=== PATIENT | female | born 1995 | race Hispanic/Latino ===

== ENCOUNTER 2022-03-25 21:39 | Emergency (ER) | payer BC ==
[~2022-03-25] VITALS: Ht 160 cm; Wt 77.6 kg
[~2022-03-25 21:39] MED LIST: DOXY100C5 PO; FLUN25H NS
[2022-03-25 22:18] LABS: BASOPHILS % (AUTO) 0.7 % (0.0-5.0); EOSINOPHILS % (AUTO) 3.4 % (0.0-8.0); HEMATOCRIT 37.2 % (36-48); LYMPHOCYTES % (AUTO) 28.2 % (21.0-51.0); MEAN CORPUSCULAR HEMOGLOBIN 26.6 pg (27.0-33.0); MEAN CORPUSCULAR HGB CONC 34.1 g/dL (32.0-36.0); MEAN CORPUSCULAR VOLUME 77.8 fL (79-99); MONOCYTES % (AUTO) 10.6 % (3.0-13.0); PLATELET COUNT (AUTO) 261 K/uL (130-400); RED BLOOD CELL COUNT(AUTO) 4.78 MIL/uL (4.00-5.50); RED CELL DISTRIBUTION WIDTH 14.9 % (11.0-15.5); WHITE BLOOD COUNT (AUTO) 7.6 K/uL (4.8-10.8)
[2022-03-25 22:22] LABS: APPEARANCE,URINE CLOUDY (CLEAR); BILIRUBIN,URINE NEGATIVE (NEGATIVE); COLOR,URINE YELLOW (YELLOW); GLUCOSE, URINE (UA) NEGATIVE (NEGATIVE); KETONES,URINE 5 mg/dL (NEGATIVE); LEUKOCYTE ESTERASE ,URINE NEGATIVE Leu/uL (NEGATIVE); NITRATE,URINE NEGATIVE (NEGATIVE); OCCULT BLOOD,URINE MODERATE (NEGATIVE); PH,URINE 6.5 (5.0-8.0); PROTEIN,URINE 30 mg/dL (NEGATIVE)
[2022-03-25 22:28] LABS: BACTERIA,URINE RARE /HPF (None Seen); MUCUS,URINE FEW LPF (None Seen); RBC,URINE 51-100 /HPF (0-1); SQUAMOUS EPITHELIAL CELL,UR FEW /HPF (0-2)
[2022-03-25] MEDS ORDERED: MAGNESIUM HYDROXIDE 30 ML/UDCUP PO SCH (22:30)
[2022-03-25] MEDS ORDERED: KETOROLAC 30MG VIAL (30MG/ML) IVP ONE (22:30)
[2022-03-25] MEDS ORDERED: 0.9%NACL 1000ML 1,000 ML IV ONE (22:30)
[2022-03-25 22:31] LABS: ALBUMIN 3.7 g/dL (3.5-5.0); HCG,QUALITATIVE URINE NEGATIVE (NEGATIVE); TOTAL PROTEIN, SERUM 7.4 g/dL (6.0-8.3)
[2022-03-25 22:32] LABS: POTASSIUM 2.7 mmol/L (3.5-5.1)
[2022-03-25] MEDS ORDERED: POTASSIUM CHLORIDE 10MEQ/100ML 0 ML IV ONE (22:40)
[2022-03-25] MEDS: POTASSIUM CHLORIDE 20MEQ/100ML 100 ML IV ONE ×2 (23:12→23:39)
[2022-03-25] MEDS ORDERED: POTASSIUM CHLORIDE 10MEQ/100ML 100 ML IV SCH (23:30)
[2022-03-26] MEDS ORDERED: POTASSIUM BICARB/CIT AC 25 MEQ TABLET.EFF PO ONE
[2022-03-26] MEDS ORDERED: TAMS-1 PO (00:32)
[2022-03-26] MEDS ORDERED: IBUP-1493 PO (00:32)
[2022-03-26 00:38] VITALS: BP 112/67
== END 2022-03-26 00:54 | disposition home or self-care (01) ==
LOC: EDH 21:39
DX: N83.291 Other ovarian cyst, right side (principal); N20.0 Calculus of kidney; Z79.1 Long term (current) use of non-steroidal anti-inflammatories (NSAID); Z90.49 Acquired absence of other specified parts of digestive tract
CPT/HCPCS: 99285; 74176; 96374; 76856; 96361; 80053; 85025; 81001; 81025; 36415; J7030; J3480; J1885

== ENCOUNTER 2022-09-16 06:55 | Day surgery (SDC) | payer BC ==
[2022-09-11 13:17] LABS: BASOPHILS # (AUTO) 0.03 K/uL (0.00-0.20); BASOPHILS % (AUTO) 0.3 % (0.0-5.0); EOSINOPHILS # (AUTO) 0.13 K/uL (0.00-0.70); EOSINOPHILS % (AUTO) 1.3 % (0.0-8.0); HEMATOCRIT 41.5 % (36-48); IMMATURE GRANULOCYTE ABSOLUTE 0.03 K/uL (0-1); LYMPHOCYTES # (AUTO) 2.1 K/uL (1.0-4.8); MEAN CORPUSCULAR HEMOGLOBIN 27.3 pg (27.0-33.0); MEAN CORPUSCULAR HGB CONC 31.1 g/dL (32.0-36.0); MEAN CORPUSCULAR VOLUME 87.7 fL (79-99); MONOCYTES # (AUTO) 0.5 K/uL (0.1-1.0); MONOCYTES % (AUTO) 5.5 % (3.0-13.0); NEUTROPHILS # (AUTO) 6.8 K/uL (1.8-7.7); NEUTROPHILS % (AUTO) 70.6 % (40.0-77.0); PLATELET COUNT (AUTO) 396 K/uL (130-400); RED BLOOD CELL COUNT(AUTO) 4.73 MIL/uL (4.00-5.50); RED CELL DISTRIBUTION WIDTH 13.8 % (11.0-15.5); WHITE BLOOD COUNT (AUTO) 9.7 K/uL (4.8-10.8)
[2022-09-11 13:49] VITALS: BP 124/75; PULSE 61; RESP 18
[2022-09-16] VITALS (20 sets, daily range): BP systolic 108–131; BP diastolic 52–87; PULSE 74–96; RESP 13–23
[~2022-09-16] VITALS: Ht 160 cm; Wt 81.0 kg
[2022-09-16] MEDS ORDERED: CEFAZOLIN SODIUM 2 GM VIAL ONE (07:18)
[2022-09-16] MEDS ORDERED: LIDOCAINE PF 100MG/5ML (2%) SYRINGE 5ML ONE (07:20)
[2022-09-16] MEDS ORDERED: SUCCINYLCHOLINE 200MG/10ML SYR ONE (07:20)
[2022-09-16] MEDS ORDERED: DEXAMETHASONE SOD PHOSPHATE 10MG/ML 1ML VIAL ONE (07:20)
[2022-09-16] MEDS ORDERED: ONDANSETRON 4MG INJ ONE ×3 (07:20→10:57)
[2022-09-16] MEDS ORDERED: PROPOFOL 10 MG/ML 20ML VIAL IV ONE (07:20)
[2022-09-16] MEDS ORDERED: LACTATED RINGERS 1000ML 1,000 ML IV ONE (07:20)
[2022-09-16] MEDS ORDERED: GLYCOPYRROLATE 1 MG/5 ML SYRINGE ONE (07:20)
[2022-09-16] MEDS ORDERED: MIDAZOLAM HCL 1 MG/ML 2ML VIAL ONE (07:20)
[2022-09-16] MEDS ORDERED: NEOSTIGMINE 5MG/5ML SYR IV ONE (07:20)
[2022-09-16] MEDS ORDERED: ROCURONIUM 10MG/1ML SYR 10 MG/ML ML ONE (07:21)
[2022-09-16] MEDS ORDERED: FENTANYL CITRATE PF 50 MCG/1 ML 2ML VIAL ONE ×2 (07:21→08:08)
[2022-09-16] MEDS ORDERED: ESMOLOL HCL 10 MG/ML 10 ML VIAL ONE (08:13)
[2022-09-16] MEDS ORDERED: CEFAZOLIN SODIUM 2 GM VIAL IVPB ONE (08:40)
[2022-09-16] MEDS ORDERED: BUPIVACAINE/PF 0.25% 30ML VIAL IJ ONE ×4 (08:42→10:20)
[2022-09-16] MEDS ORDERED: FENTANYL CITRATE PF 50 MCG/1 ML 5ML AMP IV ONE (09:56)
[2022-09-16] MEDS ORDERED: MEPERIDINE-PF 25 MG/ML SYG ONE ×2 (10:57→11:11)
[2022-09-16] MEDS ORDERED: MORPHINE 10MG VIAL ONE (12:05)
[2022-09-16] MEDS ORDERED: SCOPOLAMINE HYDROBROMIDE 1 EACH ADH..PATCH TD ONE (13:12)
== END 2022-09-16 13:25 | disposition home or self-care (01) ==
LOC: DAH 06:55
PROVIDERS: ATTEND Obstetrics & Gynecology
DX: R10.2 Pelvic and perineal pain (principal); Z20.822 Contact with and (suspected) exposure to COVID-19; D27.0 Benign neoplasm of right ovary; N93.8 Other specified abnormal uterine and vaginal bleeding; N84.0 Polyp of corpus uteri; D25.9 Leiomyoma of uterus, unspecified; E66.9 Obesity, unspecified; Z90.49 Acquired absence of other specified parts of digestive tract; Z98.890 Other specified postprocedural states; Z68.32 Body mass index [BMI] 32.0-32.9, adult
CPT/HCPCS: 58558; 58662; S2900; 36415; 81025; 84703; 85025; 86850; 86900; 86901; 87426; A4344; J0330; J1100; J2001; J2175; J2250; J2270; J2405; J2704; J2710; J3010; J3490; J7030; J7120; A4215; A4221; A4222; A4223; A4510; A4600; A4649; A4663; C1765; G0168; J0690

== ENCOUNTER 2025-02-12 13:04 | Emergency (ER) | payer BC ==
[~2025-02-12] VITALS: Ht 157.5 cm; Wt 80.3 kg
--- NOTE | 2025-02-12 13:16 | ERN ---
ED Note History of Present Illness Stated Complaint: ABD PAIN Chief Complaint: Abdominal Pain Time Seen by MD: 13:08 Dictation: PATIENT IS A 29-YEAR-OLD FEMALE HERE WITH COMPLAINTS OF DIFFUSE LOWER ABDOMINAL PAIN WITH NAUSEA VOMITING AND DIARRHEA ONSET 11:00 THIS MORNING SHE DENIES FEVER CHILLS NO FLANK PAIN NO CHANGE IN URINATION. Allergies: Coded Allergies: No Known Drug Allergies (Unverified Allergy, Unknown, 11/02/16) Home Meds Active Scripts Ondansetron (Ondansetron Odt) 4 Mg Tab.rapdis, 4 MG PO Q6HPRN PRN for nausea, #16 TAB 0 Refills Prov:ADELE SUNG MELTER [employer]PER[employer] 02/12/25 Dicyclomine HCl (Bentyl) 20 Mg Tab, 20 MG PO Q6HPRN PRN for ABDOMINAL CRAMPING/PAIN, #20 TAB Prov:ADELE SUNG [employer]TER [employer]PER[employer] 02/12/25 Metronidazole (Metronidazole) 500 Mg Tablet, 1 TAB PO BID for 7 Days, #14 TAB 0 Refills Prov:ADELE SUNG [employer]TER [employer]PER[employer] 02/12/25 Ciprofloxacin HCl (Cipro) 500 Mg Tablet, 1 TAB PO BID for 7 Days, #14 TAB 0 Refills Prov:ADELE SUNG [employer]TER [employer]PER[employer] 02/12/25 Past Medical History Past Medical History: No Pertinent History Surgical History: Cholecystectomy Surgical History Other: DERMOID CYSTECTOMY RT OVARY, MASS ON RIGHT BREAST REMOVED Family History: Negative Social History: Negative LMP: Feb 10, 2025 RN Note Reviewed/Agreed w/PFSH: Yes Review of System Dictation CONSTITUTIONAL: NEGATIVE EXCEPT FOR HPI HEAD/FACE: NEGATIVE EXCEPT FOR HPI EENT: NEGATIVE EXCEPT FOR HPI RESPIRATORY: NEGATIVE EXCEPT FOR HPI GASTROINTESTINAL/ABDOMINAL: NEGATIVE EXCEPT FOR HPI DIFFUSE LOWER ABDOMINAL PAIN WITH NAUSEA VOMITING DIARRHEA GENITOURINARY: NEGATIVE EXCEPT FOR HPI MUSCULOSKELETAL: NEGATIVE EXCEPT FOR HPI INTEGUMENTARY: NEGATIVE EXCEPT FOR HPI NEUROLOGICAL/PSYCH: NEGATIVE EXCEPT FOR HPI HEMATOLOGIC/LYMPHATIC: NEGATIVE EXCEPT FOR HPI ALL SYSTEMS NEGATIVE, EXCEPT NOTED ABOVE. 13 POINT REVIEW OF SYSTEMS ASSESSED AND ALL NEGATIVE EXCEPT FOR ABOVE. Initial Vital Sign VS Vital Signs Date Time Temp Pulse Resp B/P (MAP) Pulse Ox O2 Delivery O2 Flow Rate FiO2 02/12/25 13:05 98.1 92 17 115/72 96 Room Air 0 02/12/25 13:13 21 Physical Exam Dictation VITAL SIGNS REVIEWED GENERAL APPEARANCE: ALERT, ORIENTED X 3, MILD ACUTE DISTRESS, WELL DEVELOPED, NOURISHED. OBESE HEAD AND FACE: NON-TRAUMATIC. EYES: PERRL, PINK CONJUNCTIVAS, EYELID NO TRAUMA, ANTERIOR CHAMBER WITH ARCUS SENILIS. EARS: PINNAS INTACT AND NO SIGNS OF TRAUMA OR ERYTHEMA EAR CANALS CLEAR AND NO DISCHARGE TM NO ERYTHEMA NOSE: NO DISCHARGE, NO BLEEDING. OROPHARYNX: MOUTH NORMAL, TONGUE PINK, PHARYNX CLEAR,NO ERYTHEMA, TONSILS NO EXUDATES, NO ABSCESSES NOTED, MUCOUS MEMBRANE MOIST NECK: SUPPLE, NON-TENDER, NO THYROMEGALY, NO MASSES, NO JVD, NO BRUITS BREAST:DEFERRED CHEST:NO TENDERNESS, NO CREPITUS, NO PARADOXICAL MOVEMENT, NO RETRACTIONS LUNGS:CLEAR, WELL-VENTILATED, SYMMETRIC, NO RALES, NO WHEEZING, NO RHONCHI, NO STRIDOR, GOOD BREATH SOUNDS BILATERALLY HEART: REGULAR RATE, REGULAR RHYTHM, NO MURMUR, NO GALLOPS VASCULAR: NO PERIPHERAL EDEMA, ABDOMEN: SOFT, POSITIVE BOWEL SOUNDS, NONDISTENDED, NO GUARDING, DIFFUSE BILATERAL LOWER QUADRANT PAIN TENDERNESS WITH PALPATION REBOUND RECTAL: DEFERRED GENITAL: DEFERRED NEUROLOGICAL: NORMAL SPEECH, MOTOR FUNCTION INTACT, SENSORY FUNCTION INTACT MUSCULOSKELETAL: NECK NONTENDER, FULL RANGE OF MOTION, BACK NONTENDER, FULL RANGE OF MOTION, EXTREMITIES: NONTENDER, FULL RANGE OF MOTION SKIN: COLOR PINK, DRY, NO TURGOR, NO RASH, NO LACERATIONS, NO ABRASIONS, NO CONTUSIONS. LYMPHATIC: DEFERRED Results (Laboratory/Radiology) Laboratory/Radiology Laboratory Tests Test 02/12/25 13:19 02/12/25 13:30 02/12/25 14:30 White Blood Count 17.5 K/uL (4.8-10.8) H Red Blood Count 4.90 MIL/uL (4.00-5.50) Hemoglobin 13.6 g/dL (12.0-16.0) Hematocrit 42.6 % (36-48) Mean Corpuscular Volume 86.9 fL (79-99) Mean Corpuscular Hemoglobin 27.8 pg (27.0-33.0) Mean Corpuscular Hemoglobin Concent 31.9 g/dL (32.0-36.0) L Red Cell Distribution Width 13.3 % (11.0-15.5) Platelet Count 378 K/uL (130-400) Mean Platelet Volume 10.1 fL (7.5-10.5) Immature Granulocyte % (Auto) 0.5 % (0-1) Neutrophils (%) (Auto) 86.5 % (40.0-77.0) H Lymphocytes (%) (Auto) 7.5 % (21.0-51.0) L Monocytes (%) (Auto) 4.6 % (3.0-13.0) Eosinophils (%) (Auto) 0.7 % (0.0-8.0) Basophils (%) (Auto) 0.2 % (0.0-5.0) Neutrophils # (Auto) 15.1 K/uL (1.8-7.7) H Lymphocytes # (Auto) 1.3 K/uL (1.0-4.8) Monocytes # (Auto) 0.8 K/uL (0.1-1.0) Eosinophils # (Auto) 0.13 K/uL (0.00-0.70) Basophils # (Auto) 0.03 K/uL (0.00-0.20) Absolute Immature Granulocyte (auto 0.08 K/uL (0-1) Nucleated Red Blood Cells 0.0 % (0.0-0.19) White Cell Morphology Comment See comments Sodium Level 141 mmol/L (136-145) Potassium Level 4.1 mmol/L (3.5-5.1) Chloride Level 109 mmol/L (101-111) Carbon Dioxide Level 26 mmol/L (21-32) Blood Urea Nitrogen 12 mg/dL (7-18) Creatinine 0.8 mg/dL (0.5-1.0) Glomerular Filtration Rate Calc 104 mL/min (>90) Random Glucose 88 mg/dL (70-105) Total Calcium 8.2 mg/dL (8.5-10.1) L Lipase 145 U/L (16-77) H Serum Test, Qualitative NEGATIVE (NEGATIVE) Urine Color YELLOW (YELLOW) Urine Appearance CLOUDY (CLEAR) H Urine pH 6.5 (5.0-8.0) Urine Specific [place] 1.023 (1.001-1.031) Urine Protein 50 mg/dL (NEGATIVE) H Urine Glucose (UA) NEGATIVE mg/dL (NEGATIVE) Urine Ketones NEGATIVE mg/dL (NEGATIVE) Urine Occult Blood SMALL (NEGATIVE) H Urine Nitrate NEGATIVE (NEGATIVE) Urine Bilirubin NEGATIVE mg/dL (NEGATIVE) Urine Urobilinogen 0.2 mg/dL (0.2-1.0) Urine Leukocyte Esterase NEGATIVE Yane/uL Urine RBC 6-10 /HPF (0-1) H Urine WBC 6-10 /HPF (0-1) H Urine Squamous Epithelial Cells MANY /HPF (0-2) Urine Bacteria RARE /HPF (None Seen) Urine Hyaline Casts 11-25 /LPF (0-1 /LPF) H Lactic Acid Level 2.1 mmol/L (0.8-2.5) Labs Reviewed?: Yes ED Course ED Course Orders Procedure Category Date Status Time Cbc With Differential LAB 02/12/25 Complete 13:13 Urinalysis Profile LAB 02/12/25 Complete 13:13 0.9%Nacl 1000ml (Ns PHA 02/12/25 Complete 1000ml) 13:30 Ketorolac PHA 02/12/25 Complete Tromethamine 30mg/Ml 13:30 Ondansetron 4mg Inj PHA 02/12/25 Complete (Zofran 4mg Inj) 13:30 Lipase LAB 02/12/25 Complete 13:13 Basic Metabolic Panel LAB 02/12/25 Complete 13:13 Testing, LAB 02/12/25 Complete Serum Hcg 13:13 Culture Urine LILIA 02/12/25 In Process 14:02 Blood Cult LILIA 02/12/25 In Process 14:09 Lactic Acid LAB 02/12/25 Complete 14:09 Ct Abdomen/Pelvis CT 02/12/25 Resulted W/Contrast 14:09 Iohexol (Omnipaque) PHA 02/12/25 Complete 14:40 Zosyn 3.375gm+Ns 50ml PHA 02/12/25 Complete (Zosyn 3.375gm+Ns 16:10 Acetaminophen 500mg PHA 02/12/25 Transmitted Tab (Tylenol 500mg T 17:30 Current Medications Medications (Trade) Dose Ordered Sig/Hannah Route PRN Reason Start Time Stop Time Status Last Admin Dose Admin Iohexol (Omnipaque) 75 ml STK-MED ONCE IV 02/12/25 14:40 02/12/25 14:40 DC Ketorolac Tromethamine (toRADol) 30 mg ONCE ONCE IVP 02/12/25 13:30 02/12/25 13:31 DC 02/12/25 13:33 Ondansetron HCl (zoFRAN 4MG INJ) 4 mg ONCE ONCE IVP 02/12/25 13:30 02/12/25 13:31 DC 02/12/25 13:33 Piperacillin Sod/ Tazobactam Sod (Zosyn 3.375gm+NS 50ml) 3.375 gm ONCE STAT IVPB 02/12/25 16:10 02/12/25 16:22 DC 02/12/25 16:58 Sodium Chloride 1,000 ml @ 0 mls/hr ONCE ONCE IV 02/12/25 13:30 02/12/25 13:31 DC 02/12/25 13:33 Vital Signs Date Time Temp Pulse Resp B/P (MAP) Pulse Ox O2 Delivery O2 Flow Rate FiO2 02/12/25 13:13 98.1 92 17 115/72 96 Room Air* 0 21 02/12/25 13:05 98.1 92 17 115/72 96 Room Air 0 1700/NO PAIN AT THIS TIME. CT IS UNREMARKABLE PATIENT GIVEN ZOSYN FOR BACTERIAL GASTROENTERITIS SHE DOES NOT WISH TO BE ADMITTED TO THE HOSPITAL AND WE WILL BE DISCHARGED HOME. MOTHER WE WILL TAKE HER Medical Decision Making MDM MDM: DIFFERENTIAL DIAGNOSIS: ACUTE COLITIS/DIVERTICULITIS/APPENDICITIS/HERNIA/ERIN CTROLYTE IMBALANCE/DEHYDRATION/UTI RATIONALE: TESTS CONSIDERED AND ORDERED SECONDARY TO SHARED DECISION MAKING INCLUDE: RADIOLOGY/LABS PREVIOUS OUTSIDE RECORDS REVIEWED: OLD ER VISITS. RISK OF COMPLICATION AND/OR MORBIDITY OR MORTALITY OF PATIENT MANAGEMENT: NONE MEDICATIONS-PER MEDICATION RECONCILIATION NEED FOR HOSPITALIZATION: PATIENT DOES NOT MEET CRITERIA FOR HOSPITALIZATION. NONE NEED FOR EMERGENCY MAJOR/MINOR SURGERY: NO THERE ARE NO SOCIAL CONCERNS WITH THIS PATIENT. PRESCRIPTION DRUG MANAGEMENT CIPRO/METRONIDAZOLE/BENTYL PRESCRIPTIONS WILL INCLUDE SYMPTOMATIC CARE PATIENT'S PRIOR EXTERNAL MEDICAL RECORDS FROM OTHER ER VISITS WERE REVIEWED BY ME INDICATED. PRIOR TESTING AND RESULTS FROM PREVIOUS VISITS WERE REVIEWED. PRIOR TESTS WERE TAKEN INTO ACCOUNT WITH MEDICAL DECISION MAKING AND RESOURCE UTILIZATION, INDEPENDENT HISTORIAN/HISTORIANS WERE USED TO OBTAIN COMPLETE MEDICAL HISTORY. I INDEPENDENTLY INTERPRETED THE TEST THAT WERE PERFORMED, RESULTS WERE REVIEWED BY ME AND CONSIDERED FINDINGS ON RADIOLOGY IF ORDERED. MEDICAL MANAGEMENT AND EXAMINATION INTERPRETATION DISCUSSIONS WERE HAD BY ME WITH OTHER QUALIFIED HEALTHCARE PROFESSIONALS INDICATED FOR THE PATIENT'S CARE. DX & DISP Disposition: Discharge Departure Impression: Primary Impression: Bacterial gastroenteritis Additional Impressions: Nausea vomiting and diarrhea, Elevated lipase, Hypocalcemia, Sepsis Condition: Stable Scripts Ondansetron (Ondansetron Odt) 4 Mg Tab.rapdis 4 MG PO Q6HPRN PRN for nausea, #16 TAB 0 Refills Prov: ADELE SUNGP 02/12/25 Dicyclomine HCl (Bentyl) 20 Mg Tab 20 MG PO Q6HPRN PRN for ABDOMINAL CRAMPING/PAIN, #20 TAB Prov: ADELE SUNG MELTER [employer]PER[employer] 02/12/25 Metronidazole (Metronidazole) 500 Mg Tablet 1 TAB PO BID for 7 Days, #14 TAB 0 Refills Prov: ADELE SUNGP 02/12/25 Ciprofloxacin HCl (Cipro) 500 Mg Tablet 1 TAB PO BID for 7 Days, #14 TAB 0 Refills Prov: ADELE SUNGP 02/12/25 Additional Instructions: FOLLOW-UP WITH PRIMARY CARE PROVIDER IN 1 TO 2 DAYS. TAKE MEDICATIONS DIRECTED HERE IN THE EMERGENCY ROOM. OKAY TO CONTINUE HOME MEDICATIONS UNLESS OTHERWISE DISCUSSED DURING YOUR VISIT IN THE EMERGENCY ROOM TODAY. RETURN TO YOUR NEAREST EMERGENCY ROOM IF SYMPTOMS WORSEN OR IF THERE IS NO IMPROVEMENT. CALL 911 IF YOU NEED IMMEDIATE ASSISTANCE. TAKE TYLENOL OR MOTRIN [id number] NEEDED AND IF NO CONTRAINDICATIONS ARE PRESENT. INCREASE ORAL HYDRATION. A WOUND CULTURE OR URINE CULTURE WAS ORDERED HERE IN THE EMERGENCY ROOM DEPARTMENT PLEASE FOLLOW-UP WITH PRIMARY CARE PROVIDER AND ADVISE THEM TO GET REPEAT PORTS FROM OUR FACILITY. IF YOU HAD ANY REY WRAP/SPLINTS THAT WERE APPLIED HERE, PLEASE DO NOT REMOVE THEM UNTIL YOU SEE YOUR PRIMARY CARE OR SPECIALTY. TAKE ANTIBIOTICS DIRECTED FOR THE NEXT SEVEN DAYS UNTIL GONE. CLEAR LIQUID DIET FOR 24 HOUR AND THEN ADVANCE DIET SLOWLY TO REGULAR STARTING TOMORROW AFTERNOON. TAKE BENTYL DIRECTED FOR ABDOMINAL PAIN SEE YOUR PRIMARY CARE DOCTOR FOR FOLLOW UP AND MANAGEMENT Referrals: BRAD BALDWIN (PCP) Time of Disposition: 17:01 I have reviewed the case, and I agree with, Diagnosis and Plan ADELE SUNG Feb 12, 2025 13:16 JANIS CUNNINGHAM DO Feb 12, 2025 17:09
[2025-02-12] MEDS: 0.9%NACL 1000ML 1,000 ML IV ONE (13:33)
[2025-02-12 13:43] LABS: IMMATURE GRANULOCYTE ABSOLUTE 0.08 K/uL (0-1); NUCLEATED RED BLOOD CELLS 0.0 % (0.0-0.19); PLATELET COUNT (AUTO) 378 K/uL (130-400); RED BLOOD CELL COUNT(AUTO) 4.90 MIL/uL (4.00-5.50); RED CELL DISTRIBUTION WIDTH 13.3 % (11.0-15.5); WHITE BLOOD COUNT (AUTO) 17.5 K/uL (4.8-10.8)
[2025-02-12 13:44] LABS: APPEARANCE,URINE CLOUDY (CLEAR); GLUCOSE, URINE (UA) NEGATIVE (NEGATIVE); LEUKOCYTE ESTERASE ,URINE NEGATIVE Leu/uL (NEGATIVE); NITRATE,URINE NEGATIVE (NEGATIVE); OCCULT BLOOD,URINE SMALL (NEGATIVE)
[2025-02-12 13:46] LABS: ADD UA MICROSCOPIC YES
[2025-02-12 13:55] LABS: SQUAMOUS EPITHELIAL CELL,UR MANY /HPF (0-2)
[2025-02-12 13:58] LABS: CREATININE 0.8 mg/dL (0.5-1.0); GLOMERULAR FILTR. RATE CALC 104.0 mL/min (>90); GLUCOSE,RANDOM 88.0 mg/dL (70-105); SODIUM SERUM 141.0 mmol/L (136-145); UREA NITROGEN, BLOOD 12.0 mg/dL (7-18)
[2025-02-12] MEDS ORDERED: IOHEXOL-350 75 ML VIAL IV ONE (14:40)
--- NOTE | 2025-02-12 16:00 | HMCIMG ---
EXAM: CT Abdomen and Pelvis with IV contrast CLINICAL HISTORY: ACUTE RIGHT LOWER QUADRANT PAIN WITH NAUSEA VOMITING.17.5 WBCS TECHNIQUE: Axial computed tomography images of the abdomen and pelvis with intravenous contrast. CONTRAST: with intravenous contrast. COMPARISON: None provided. FINDINGS: LUNG BASES: The lung bases appear clear. No pleural effusions are seen. LIVER: Unremarkable. GALLBLADDER AND BILE DUCTS: Cholecystectomy clips. PANCREAS: Unremarkable. SPLEEN: Unremarkable. ADRENAL GLANDS: Unremarkable. KIDNEYS, URETERS, AND BLADDER: The kidneys appear within normal limits. There is no hydronephrosis or hydroureter. No urinary calculi are seen. STOMACH AND BOWEL: Unremarkable appearance of the stomach and bowel. No evidence of bowel obstruction. No evidence suggesting enteritis or colitis. APPENDIX: No evidence of acute appendicitis on CT examination. PERITONEUM: No free fluid. No free air. LYMPH NODES: No lymphadenopathy is evident. REPRODUCTIVE: Unremarkable as visualized. VASCULATURE: No evidence of abdominal aortic aneurysm. BONES: No aggressive appearing osseous lesion. No acute osseous pathology evident. IMPRESSION: 1. No acute intraabdominal or pelvic pathology. 2. Appendix is seen without focal inflammatory change. /[place]
[2025-02-12] MEDS: ZOSYN 3.375GM +NS 50ML IVPB STA (16:58)
[2025-02-12] MEDS ORDERED: ONDA-243 PO (17:04)
[2025-02-12] MEDS ORDERED: DICY20TA2 PO (17:04)
[2025-02-12] MEDS ORDERED: METR-172 PO (17:04)
[2025-02-12] MEDS ORDERED: CIPR-278 PO (17:04)
[2025-02-12 17:34] VITALS: BP 118/84; PULSE 74; RESP 17; TEMP 98.1; O2SAT 100
== END 2025-02-12 17:46 | disposition home or self-care (01) ==
LOC: EDH 13:04
DX: A41.9 Sepsis, unspecified organism (principal); A04.9 Bacterial intestinal infection, unspecified; R11.2 Nausea with vomiting, unspecified; R19.7 Diarrhea, unspecified; E83.51 Hypocalcemia; R74.8 Abnormal levels of other serum enzymes; Z90.49 Acquired absence of other specified parts of digestive tract; Z90.721 Acquired absence of ovaries, unilateral
CPT/HCPCS: 99284; 74177; 96365; 96375; 96361; 80048; 84703; 83690; 85025; 87040 ×2; 87086; 87186; 83605; 81001; 36415; J1885; J7030; J2405; J2543; Q9967